=== PATIENT | male | born 1960 | race African-American/Black ===

== ENCOUNTER → 2016-05-02 | Outpatient (CLI) | payer OTHER | LOC: RAD 10:24 | DX: R94.5 Abnormal results of liver function studies (principal); F10.10 Alcohol abuse, uncomplicated | CPT/HCPCS: 76700 ==

== ENCOUNTER → 2016-05-23 | Outpatient (CLI) | payer OTHER | LOC: CCC 11:43 | DX: K74.60 Unspecified cirrhosis of liver (principal); R73.9 Hyperglycemia, unspecified | CPT/HCPCS: 36415; 82140; 83036 ==

== ENCOUNTER → 2016-09-15 | Outpatient (CLI) | payer OTHER ==
[2016-09-15 10:59] LABS: ABSOLUTE EOSINOPHILS # (AUTO) 0.2 10^3/uL (0.0-0.6); ABSOLUTE LYMPHOCYTES (AUTO) 1.2 10^3/uL (0.5-4.7); ABSOLUTE MONOCYTES (AUTO) 0.9 10^3/uL (0.1-1.4); ABSOLUTE NEUT (AUTO) 3.2 10^3/uL (1.7-8.2); BASOPHILS % (AUTO) 0.8 % (0-2); EOSINOPHILS % (AUTO) 3.6 % (0-6); HEMATOCRIT 34.9 % (37.9-51.0); HEMOGLOBIN 11.7 g/dL (13.5-17.0); HGB HCT DIFFERENCE 0.2; LYMPHOCYTES % (AUTO) 21.3 % (13-45); MEAN CORPUSCULAR HEMOGLOBIN 33.5 pg (27.0-33.4); MEAN CORPUSCULAR HGB CONC 33.6 g/dL (32.0-36.0); MEAN CORPUSCULAR VOLUME 100 fl (80-97); MONOCYTES % (AUTO) 15.6 % (3-13); RED BLOOD COUNT 3.51 10^6/uL (4.35-5.55); RED CELL DISTRIBUTION WIDTH 14.3 % (11.5-14.0); SEGMENTED NEUTROPHILS % (AUTO) 58.7 % (42-78); WHITE BLOOD COUNT 5.5 10^3/uL (4.0-10.5)
[2016-09-15 11:01] LABS: PROTHROMBIN TIME 15.5 SEC (11.4-15.4)
[2016-09-15 11:02] LABS: PARTIAL THROMBOPLASTIN TIME 38.2 SEC (23.5-35.8)
[2016-09-15 11:14] LABS: ALANINE AMINOTRANSFERASE 54 U/L (21-72); ALBUMIN 3.4 g/dL (3.5-5.0); ALKALINE PHOSPHATASE 242 U/L (38-126); ANION GAP 11 (5-19); ASPARTATE AMINO TRANSFERASE 149 U/L (17-59); BILIRUBIN,DIRECT 0.8 mg/dL (0.0-0.4); BILIRUBIN,TOTAL 1.1 mg/dL (0.2-1.3); BLOOD UREA NITROGEN 3 mg/dL (7-20); CALCIUM 8.7 mg/dL (8.4-10.2); CARBON DIOXIDE 22 mmol/L (22-30); CHLORIDE 112 mmol/L (98-107); CHOLESTEROL 175.91 mg/dL (0-200); CREATININE RESULT 0.74 mg/dL (0.52-1.25); Direct HDL 55 mg/dL (>40); GLUCOSE 101 mg/dL (75-110); POTASSIUM 4.1 mmol/L (3.6-5.0); SODIUM 145.2 mmol/L (137-145); TOTAL PROTEIN 8.9 g/dL (6.3-8.2); TRIGLYCERIDES 110 mg/dL (<150)
[2016-09-15 11:25] LABS: DIRECT LDL 97 mg/dL (<100)
== END ==
LOC: CCC 09:57
DX: B19.20 Unspecified viral hepatitis C without hepatic coma (principal); K76.0 Fatty (change of) liver, not elsewhere classified; I10 Essential (primary) hypertension; F10.10 Alcohol abuse, uncomplicated
CPT/HCPCS: 36415; 80053; 80061; 84153; 84443; 85025; 85610; 85730

== ENCOUNTER → 2016-09-29 | Outpatient (CLI) | payer OTHER ==
[2016-09-29 12:03] LABS: FOLATE 6.66 ng/mL (>2.76)
== END ==
LOC: CCC 10:03
DX: D53.9 Nutritional anemia, unspecified (principal); R94.5 Abnormal results of liver function studies
CPT/HCPCS: 36415; 82607; 82746; 82977

== ENCOUNTER → 2016-11-03 | Outpatient (CLI) | payer OTHER ==
--- NOTE | 2016-11-03 15:41 | RADIOLOGY REPORT (SQ) ---
EXAM DESCRIPTION: UPPER GI/SM BOWEL COMPLETED DATE/TIME: 11/03/2016 11:46 am REASON FOR STUDY: INTERMITTENT HEMATEMESIS K92.0 HEMATEMESIS COMPARISON: None. TECHNIQUE: Under fluoroscopic guidance, patient ingested effervescent granules followed by thick an d thin barium. Fluoroscopic spot images and routine radiographic images acquired and stored on PACS . Following evaluation of esophagus and stomach, additional barium administered with serial delayed ab dominal radiographs until colonic identification. Fluoroscopic images recorded of the terminal ileu m. 12 MM BARIUM TABLET GIVEN: Yes FLUOROSCOPY TIME: 3.5 minutes 45 images saved to PACS. LIMITATIONS: None. FINDINGS: NEUROMUSCULAR COORDINATION OF SWALLOW: Normal. No aspiration. ESOPHAGEAL MOTILITY: Normal peristalsis. No esophageal spasm. ESOPHAGEAL MUCOSA: Normal mucosa without masses or ulceration. GASTRO-ESOPHAGEAL JUNCTION: No hiatal hernia or reflux. STOMACH: The gastric antrum is abnormal. A small ulcer crater is present with radiating folds and barger rrounding edema. No gastric outlet obstruction. Remainder of the stomach demonstrates diffuse cassidy es of gastritis with tiny surface mucosal ulcers and atrophy of the gastric folds. GASTRIC OUTLET: No delay in emptying. Normal pylorus. DUODENAL BULB: Normal distention. No spasm or ulceration. DUODENUM: Mucosa normal. No extrinsic masses or malrotation. PROXIMAL SMALL BOWEL: Normal as visualized. JEJUNUM: Normal mucosal pattern. No dilatation, segmentation, strictures or masses. ILEUM: Normal mucosal pattern. No dilatation, segmentation, strictures or masses. TERMINAL ILEUM AND ILEO-CECAL VALVE: Normal mucosal pattern without cobble-stoning or stricture. Nor mal compression. PROXIMAL COLON: Incompletely imaged. No abnormality. NON-GI TRACT STRUCTURES: No significant finding. OTHER: No other significant finding. IMPRESSION: Gastric antral ulcer with radiating folds and surrounding edema. No gastric outlet obst ruction is associated Atrophy of the remainder of the stomach mucosal folds, with tiny surface mucosal ulcers present COMMENT: Quality ID [id number]: Final reports for procedures using fluoroscopy that document radiation exp osure indices, or exposure time and number of fluorographic images (if radiation exposure indices are not available) TECHNICAL DOCUMENTATION: JOB ID: [id number] [employer]- All Rights Reserved
== END ==
LOC: RAD 08:57
DX: K92.0 Hematemesis (principal)
CPT/HCPCS: 74249

== ENCOUNTER 2017-04-30 13:00 | Emergency (ER) | payer OTHER ==
[2017-04-30] MEDS ORDERED: NORMAL SALINE 1000 ML 250 ML IV ONE (13:44)
[2017-04-30 13:49] LABS: ABSOLUTE BASOPHILS # (AUTO) 0.1 10^3/uL (0.0-0.2); ABSOLUTE MONOCYTES (AUTO) 1.7 10^3/uL (0.1-1.4); ABSOLUTE NEUT (AUTO) 10.7 10^3/uL (1.7-8.2); BASOPHILS % (AUTO) 0.4 % (0-2); EOSINOPHILS % (AUTO) 0.2 % (0-6); LYMPHOCYTES % (AUTO) 13.6 % (13-45); MEAN CORPUSCULAR HEMOGLOBIN 37.7 pg (27.0-33.4); MEAN CORPUSCULAR HGB CONC 34.2 g/dL (32.0-36.0); MEAN CORPUSCULAR VOLUME 110 fl (80-97); MONOCYTES % (AUTO) 11.8 % (3-13); RED BLOOD COUNT 1.23 10^6/uL (4.35-5.55); RED CELL DISTRIBUTION WIDTH 15.9 % (11.5-14.0); TOTAL CELLS COUNTED % (AUTO) 100 %; WHITE BLOOD COUNT 14.5 10^3/uL (4.0-10.5)
--- NOTE | 2017-04-30 13:51 | EKG REPORT ---
SEVERITY:- ABNORMAL ECG - ECTOPIC ATRIAL TACHYCARDIA NONSPECIFIC T ABNORMALITIES, LATERAL LEADS : Confirmed by: Kingston Olivarez MD 30-Apr-2017 13:50:51
[2017-04-30 13:56] LABS: HEMOGLOBIN 4.6 g/dL (13.5-17.0)
--- NOTE | 2017-04-30 14:10 | ER Document Report ---
ED GI Bleed / Rectal Pain - General Chief Complaint: GI Bleeding Stated Complaint: GI BLEED Time Seen by Provider: 04/30/17 13:37 Mode of Arrival: Stretcher Information source: Patient, Legal Guardian Notes: 56 years old male with a history of cirrhosis of the liver, ascites, still drinking alcoholic drinks, was confused today therefore he is girlfriend brought him to the ED. He also periodically on and off either vomit blood or melena. This morning he vomited once with blood. He noticed progressive increasing swelling of both lower extremities. Progressive distention of the abdomen 2. But denies any chest pain or abdominal pain . Denies any difficulty in breathing or wheezing. TRAVEL OUTSIDE OF THE [place] IN LAST 30 DAYS: No - HPI Patient complains to provider of: Coffee ground emesis, Dark/tarry stools Onset: Just prior to arrival Timing/Duration: Intermittent Quality of pain: Achy Severity of symptoms: Severe Dark Stools: Black, Tarry Use of: ETOH Associated symptoms: Fainting/dizzy/lightheade Exacerbated by: Food Relieved by: denies: Denies, Supine, Sitting, Standing, Remaining still, Antacids, Food, Other Similar symptoms previously: Yes - Related Data Allergies/Adverse Reactions: No Known Allergies Allergy (Verified 04/30/17 13:30) Past Medical History - Social History Smoking Status: Current Every Day Smoker Frequency of alcohol use: Heavy Drug Abuse: None Family History: Reviewed & Not Pertinent Patient has suicidal ideation: No Patient has homicidal ideation: No Renal/ Medical History: Denies: Hx Peritoneal Dialysis Review of Systems - Review of Systems Constitutional: denies: No symptoms reported, See HPI, Chills, Diaphoresis, Fever, Malaise, Weakness, Other, Weight gain, Weight loss, Recent illness EENT: denies: No symptoms reported, See HPI, Eye pain, Eye discharge, Blurred vision, Tearing, Double vision, Ear pain, Ear discharge, Nose pain, Nose congestion, Nose discharge, Sinus pressure, Sinus discharge, Throat pain, Difficulty swallowing, Throat swelling, Mouth pain, Mouth swelling, Dental problem, Vertigo, Other Cardiovascular: denies: No symptoms reported, See HPI, Chest pain, Palpitations , Heart racing, Orthopnea, Dyspnea, Syncope, Dizziness, Lightheaded, Edema, Other, Paroxysmal Nocturnal Dysp Respiratory: denies: No symptoms reported, See HPI, Cough, Hurts to breathe, Hemoptysis, Short of breath, Sputum, Stridor, Wheezing, Other Gastrointestinal: See HPI Genitourinary: denies: No symptoms reported, See HPI, Burning, Dysuria, Discharge, Frequency, Flank pain, Hematuria, Incontinence, Pain, Urgency, Retention, Other Male Genitourinary: denies: No symptoms reported, See HPI, Erectile dysfunction , Testicular pain, Penile discharge, Other Musculoskeletal: Leg swelling, Ankle swelling Skin: See HPI Physical Exam - Vital signs Vitals: Resp 15 04/30/17 13:12 - Notes Notes: PHYSICAL EXAMINATION: GENERAL: Icteric , moderate discomfort HEAD: Atraumatic, normocephalic. EYES: Pupils equal round and reactive to light, extraocular movements intact, c , conjunctiva are normal. ENT: Nares patent, oropharynx clear without exudates. Moist mucous membranes. NECK: Normal range of motion, supple without lymphadenopathy LUNGS: Decreased breath sounds bilaterally . No wheezes rales or rhonchi. HEART: Regular rate and rhythm without murmurs ABDOMEN: Distended, horseshoe dullness noted all along the flank. . Unable to palpate any organs. Bowel sounds are distant Musculoskeletal: Diffuse 4+ edema all along the entire leg. NEUROLOGICAL: Cranial nerves grossly intact. Normal speech, normal gait. Normal sensory, motor exams PSYCH: Normal mood, normal affect. SKIN: Warm, Dry, normal turgor, no rashes or lesions noted. Moderate to severe discomfort, Course - Re-evaluation Re-evalutation: 04/30/17 15:01 [facility] was contacted, discussed with the hospitalist Dr. Hopper, patient being trans-now. And also total of 4 units of blood given. - Vital Signs Vital signs: Temp Pulse Resp BP Pulse Ox 98.0 F 26 H 124/80 100 04/30/17 14:30 04/30/17 14:41 04/30/17 14:41 04/30/17 14:21 - Laboratory Result Diagrams: 04/30/17 13:22 04/30/17 13:22 Laboratory results interpreted by me: 04/30/17 04/30/17 04/30/17 13:22 13:22 13:22 WBC 14.5 H RBC 1.23 L Hgb 4.6 L* Hct 13.6 L* MCV 110 H MCH 37.7 H RDW 15.9 H Plt Count < 3 L* Absolute Neutrophils 10.7 H Absolute Monocytes 1.7 H Chloride 108 H Carbon Dioxide 13 L Total Bilirubin 7.4 H Direct Bilirubin 2.8 H AST 62 H ALT 18 L Ammonia 80.0 H Albumin 2.2 L Crossmatch 04/30/17 13:22 WBC RBC Hgb Hct MCV MCH RDW Plt Count Absolute Neutrophils Absolute Monocytes Chloride Carbon Dioxide Total Bilirubin Direct Bilirubin AST ALT Ammonia Albumin Crossmatch See Detail - EKG Interpretation by Me Rate: Tachycardia When compared to previous EKG there are: No significant change - Electrocardiogram shows sinus tach at 126 bpm, normal axis, no acute ST elevation ST depression T-wave inversion noted. Critical Care Note - Critical Care Note Total time excluding time spent on procedures (mins): 60 - Acute GI bleed, care of the patient as well as blood transfusion discussion of the case with the [facility]. Discharge - Discharge Clinical Impression: Acute GI hemorrhage Varices, esophageal Qualifiers: Esophageal varices type: secondary Esophageal varices bleeding: with bleeding Qualified Code(s): I85.11 - Secondary esophageal varices with bleeding Cirrhosis of liver Qualifiers: Hepatic cirrhosis type: alcoholic cirrhosis Ascites presence: with ascites Qualified Code(s): K70.31 - Alcoholic cirrhosis of liver with ascites Condition: Critical Disposition: [facility] Referrals: JAKE BLANCA MD [Primary Care Provider] - Follow up as needed
[2017-04-30 14:11] LABS: ALANINE AMINOTRANSFERASE 18 U/L (21-72); ALBUMIN 2.2 g/dL (3.5-5.0); ALKALINE PHOSPHATASE 62 U/L (38-126); ASPARTATE AMINO TRANSFERASE 62 U/L (17-59); BILIRUBIN,DIRECT 2.8 mg/dL (0.0-0.4); BILIRUBIN,TOTAL 7.4 mg/dL (0.2-1.3); BLOOD UREA NITROGEN 17 mg/dL (7-20); CALCIUM 8.5 mg/dL (8.4-10.2); CARBON DIOXIDE 13 mmol/L (22-30); CHLORIDE 108 mmol/L (98-107); GLUCOSE 108 mg/dL (75-110); LIPASE 36.2 U/L (23-300); POTASSIUM 3.9 mmol/L (3.6-5.0); TOTAL PROTEIN 7.4 g/dL (6.3-8.2)
[2017-04-30 14:18] LABS: ANISOCYTOSIS 1+; BURR CELLS 1+; PLATELET COMMENT DECREASED; POIKILOCYTOSIS 1+; POLYCHROMASIA SLIGHT; TOXIC GRANULATION SLIGHT
[2017-04-30 14:21] LABS: HEMATOCRIT 13.6 % (37.9-51.0); PLATELET COUNT < 3 10^3/uL (150-450)
[2017-04-30 14:22] LABS: SODIUM 138.7 mmol/L (137-145)
[2017-04-30 14:26] LABS: ANION GAP 18 (5-19)
[2017-04-30] MEDS ORDERED: OCTREOTIDE ACETATE INJ/PF 100 MCG/1 ML SDV IV ONE (14:32)
[2017-04-30] MEDS ORDERED: PANTOPRAZOLE SODIUM 40 MG VIAL IV PRN (14:34)
--- NOTE | 2017-04-30 15:20 | RADIOLOGY REPORT (SQ) ---
EXAM DESCRIPTION: CT ABD/PELVIS NO ORAL OR IV COMPLETED DATE/TIME: 04/30/2017 2:55 pm REASON FOR STUDY: Ascites COMPARISON: None. TECHNIQUE: CT scan of the abdomen and pelvis performed without intravenous or oral contrast. Images reviewed with lung, soft tissue, and bone windows. Reconstructed coronal and sagittal MPR images revi ewed. All images stored on PACS. All CT scanners at this facility use dose modulation, iterative reconstruction, and/or weight based d osing when appropriate to reduce radiation dose to as low as reasonably achievable (ALARA). [facility]: Dose Right [facility]: CareDose [facility]: Dose Right [facility]: Teradose 4D [facility]: Smart TUTORize RADIATION DOSE: CT Rad equipment meets quality standard of care and radiation dose reduction techniq ues were employed. CTDIvol: 19.3 mGy. DLP: 1083 mGy-cm.mGy. LIMITATIONS: None. FINDINGS: LOWER CHEST: No significant findings. No nodules or infiltrates. NON-CONTRASTED LIVER, SPLEEN, ADRENALS: Evaluation limited by lack of IV contrast. There is marked d ecreased attenuation of the liver. Attenuation is almost identical to ascites fluid and this makes d ifferentiation between the liver and adjacent fluid almost impossible. The spleen and adrenal glands are grossly unremarkable. PANCREAS: No masses. No peripancreatic inflammatory changes. GALLBLADDER: Not visualized. RIGHT KIDNEY AND URETER: No suspicious masses. Assessment limited by lack of IV contrast. No signif icant calcifications. No hydronephrosis or hydroureter. LEFT KIDNEY AND URETER: No suspicious masses. Assessment limited by lack of IV contrast. No signifi cant calcifications. No hydronephrosis or hydroureter. AORTA AND RETROPERITONEUM: No aneurysm. No retroperitoneal masses or adenopathy. BOWEL AND PERITONEAL CAVITY: No obvious masses or inflammatory changes. Large amount of ascites. APPENDIX: Not visualized. PELVIS, BLADDER, AND ABDOMINAL WALL:No abnormal masses. Large amount of ascites. Bladder normal. BONES: No significant findings. OTHER: No other significant finding. IMPRESSION: 1. LARGE AMOUNT OF ASCITES. 2. MARKED DECREASED ATTENUATION OF THE LIVER LIKELY DUE TO SEVERE FATTY INFILTRATION. THE DENSITY OF THE LIVER IS ALMOST IDENTICAL TO THE ASCITES FLUID AND MAKES VISUALIZATION OF THE LIVER ALMOST IMPOS SIBLE. 3. NO OTHER SIGNIFICANT FINDING ON NONCONTRAST IMAGING. COMMENT: Quality ID # [id number]: Final reports with documentation of one or more dose reduction techniques (e.g., Automated exposure control, adjustment of the mA and/or kV according to patient size, use of iterative reconstruction technique) TECHNICAL DOCUMENTATION: JOB ID: [id number] [employer]- All Rights Reserved Reading location - IP/workstation name: [email or web address]
[2017-04-30] MEDS ORDERED: NORMAL SALINE 250 ML IV PRN ×2 (15:33)
[2017-04-30 16:18] VITALS: BP 111/81
[2017-05-01 09:59] LABS: PATH REVIEW PATHOLOGIST REVIEWED
== END 2017-04-30 16:27 | disposition short-term general hospital (02) ==
LOC: ER 13:00
DX: K70.31 Alcoholic cirrhosis of liver with ascites (principal); I85.11 Secondary esophageal varices with bleeding; R00.0 Tachycardia, unspecified; R55 Syncope and collapse; F17.200 Nicotine dependence, unspecified, uncomplicated
CPT/HCPCS: 93005; 99291; 96365; 96368; 86900; 86901; 36415; 36430; 86850; 82140; 83690; 85025; 80053; 86920; 74176; 93010; P9016; P9035; J2354; S0164; J7030